=== PATIENT | male | born 1980 | race Caucasian/White ===

== ENCOUNTER 2016-11-24 16:23 | Emergency (ER) | payer MEDICAID, OTHER ==
[2016-11-24 16:58] VITALS: BMI 33.6
--- NOTE | 2016-11-24 17:03 | ED PDOC ---
Arrival/HPI - General Historian: Patient - History of Present Illness Time/Duration: 1 week Context: Street <Melissa Kiran - Last Filed: 11/24/16 22:48> <Scott Kaur - Last Filed: 11/25/16 12:20> - General Time Seen by Provider: 11/24/16 16:29 - History of Present Illness Narrative History of Present Illness (Text): 11/24/16 17:01 This 36 yo male with pmh drug abuse, depression, is brought to this ED by Police for PES evaluation. Patient stated he has been having family problems. Girlfriend " threw " him out of the house. Patient has not taken his home medication for at least a week. Patient admits using Cocaine last night. Patient stated he wanted to get arrested so the police could kill him. Patient denies hallucination, paranoia, sob, edwards, dizziness, or abnormal gait. Dr Ceballos Psychiatrist (Melissa Kiran) Past Medical History - Provider Review Nursing Documentation Reviewed: Yes - Infectious Disease Hx of Infectious Diseases: None - Cardiac Hx Hypertension: Yes - Pulmonary Hx Asthma: Yes - Psychiatric Hx Substance Use: Yes - Past Surgical History Past Surgical History: No Previous - Anesthesia Hx Anesthesia: No Hx Anesthesia Reactions: No Hx Malignant Hyperthermia: No - Suicidal Assessment Feels Threatened In Home Enviroment: No <Melissa Kiran P - Last Filed: 11/24/16 22:48> Family/Social History - Physician Review Nursing Documentation Reviewed: Yes Family/Social History: No Known Family HX Smoking Status: Light Smoker < 10 Cigarettes Daily Hx Alcohol Use: Yes Hx Substance Use: Yes Substance used: COCAINE, TODAY <Melissa Kiran P - Last Filed: 11/24/16 22:48> Allergies/Home Meds <Melissa Kiran P - Last Filed: 11/24/16 22:48> <Scott Kaur - Last Filed: 11/25/16 12:20> Allergies/Adverse Reactions: Allergies iodine Allergy (Verified 10/17/15 11:19) ANAPHYLAXIS shellfish derived Allergy (Verified 10/17/15 11:19) ANAPHYLAXIS Home Medications: Home Meds Medication Instructions Recorded Confirmed Alprazolam [Xanax] 3 mg PO PRN PRN 03/30/13 10/17/15 Escitalopram Oxalate [Lexapro] 10 mg PO BID 03/30/13 10/17/15 Divalproex [Depakote Sprinkles] 125 mg PO TID 10/17/15 10/17/15 Review of Systems - Review of Systems Constitutional: Normal. absent: Fatigue, Weight Change, Fevers Eyes: Normal ENT: Normal Respiratory: Normal. absent: SOB, Cough Cardiovascular: Normal. absent: Chest Pain, Palpitations Gastrointestinal: Normal. absent: Abdominal Pain, Nausea, Vomiting Genitourinary Male: Normal Musculoskeletal: Normal Skin: Normal Neurological: Normal. absent: Headache, Dizziness Endocrine: Normal Hemo/Lymphatic: Normal Psychiatric: Normal <Kiran,Nahim P - Last Filed: 11/24/16 22:48> Physical Exam Temperature: Afebrile Blood Pressure: Normal Pulse: Regular Respiratory Rate: Normal Appearance: Positive for: Well-Appearing, Non-Toxic, Comfortable Pain Distress: None Mental Status: Positive for: Alert and Oriented X 3 - Systems Exam Head: Present: Atraumatic, Normocephalic Pupils: Present: PERRL Extroacular Muscles: Present: EOMI Conjunctiva: Present: Normal Mouth: Present: Moist Mucous Membranes Neck: Present: Normal Range of Motion Respiratory/Chest: Present: Clear to Auscultation, Good Air Exchange. No: Respiratory Distress, Accessory Muscle Use, Wheezes, Decreased Breath Sounds, Rales, Retracting, Rhonchi, Tachypneic Cardiovascular: Present: Regular Rate and Rhythm, Normal S1, S2. No: Murmurs Abdomen: Present: Normal Bowel Sounds. No: Tenderness, Distention, Peritoneal Signs, Rebound, Guarding Back: Present: Normal Inspection. No: CVA Tenderness Upper Extremity: Present: Normal Inspection, Normal ROM, NORMAL PULSES, Neurovascularly Intact, Capillary Refill < 2s. No: Cyanosis, Edema Lower Extremity: Present: Normal Inspection, Normal ROM, Neurovascularly Intact , Capillary Refill < 2 s. No: Edema Neurological: Present: GCS=15, CN II-XII Intact, Speech Normal, Motor Func Grossly Intact, Normal Sensory Function, Normal Cerebellar Funct, Gait Normal Skin: Present: Warm, Dry, Normal Color. No: Rashes Psychiatric: Present: Alert, Oriented x 3 <Kiran,Nahim P - Last Filed: 11/24/16 22:48> Vital Signs Temp Pulse Resp BP Pulse Ox 11/25/16 12:09 98 F 80 19 130/85 100 11/25/16 10:00 97.5 F L 79 20 130/70 100 11/25/16 08:33 102 H 16 142/71 95 11/25/16 05:00 75 16 96 11/25/16 04:45 97.6 F 66 17 115/84 98 11/24/16 21:00 91 H 16 125/81 95 11/24/16 16:24 98.3 F 115 H 16 135/106 H 99 Medical Decision Making Re-evaluation Time: 22:49 Reassessment Condition: Re-examined, Improving,but remains with symptoms - Lab Interpretations I have reviewed the lab results: Yes Interpretation: No clinic. lab abnormalty - EKG Interpretation Interpreted by ED Physician: Yes (Sinus tachycardia @ 106bpm. No ST changes) Type: 12 lead EKG Comparison: No previous EKG avail. <Melissa Kiran - Last Filed: 11/24/16 22:48> <Scott Kaur - Last Filed: 11/25/16 12:20> ED Course and Treatment: 11/24/16 22:48 I spoke with PES screener, who recommended to have PES from [facility] revaluation. ( Melissa Kiran) 11/25/16 07:06 Patient has been turned over to me by . He has been screened and is awaiting placement. No problems reported overnight. Patient is sleeping soundly. (Scott Kaur) - Lab Interpretations Lab Results: 11/24/16 17:23 11/24/16 17:23 Lab Results 11/24/16 17:30: Urine Color Yellow, Urine Appearance Clear, Urine pH 6.0, Ur Specific [place] >= 1.030, Urine Protein Trace H, Urine Glucose (UA) Negative, Urine Ketones Negative, Urine Blood Negative, Urine Nitrate Negative, Urine Bilirubin Negative, Urine Urobilinogen 1.0 H, Ur Leukocyte Esterase Negative, Urine RBC Negative, Urine WBC 0 - 2, Ur Epithelial Cells 0 - 2, Urine Bacteria Trace, Urine Opiates Screen Negative, Urine Methadone Screen Negative, Ur Barbiturates Screen Negative, Ur Phencyclidine Scrn Negative, Ur Amphetamines Screen Negative, U Benzodiazepines Scrn Positive H, U Oth Cocaine Metabols Positive H, U Cannabinoids Screen Negative 11/24/16 17:23: WBC 10.4, RBC 4.30, Hgb 13.2 L, Hct 38.2 L, MCV 88.8, MCH 30.7, MCHC 34.6, RDW 15.0 H, Plt Count 317, MPV 10.9, Gran % 78.9 H, Lymph % (Auto) 10.2 L, [place] % (Auto) 8.2 H, Eos % (Auto) 2.5, Baso % (Auto) 0.2, Gran # 8.18 H , Lymph # 1.1 L, [place] # 0.9 H, Eos # 0.3, Baso # 0.02, Sodium 140, Potassium 4.2 , Chloride 106, Carbon Dioxide 24, Anion Gap 14, BUN 16, Creatinine 0.9, Est GFR ( Amer) > 60, Est GFR (Non-Af Amer) > 60, Random Glucose 105, Calcium 9.4, Total Bilirubin 0.4, AST 33, ALT 37, Alkaline Phosphatase 69, Total Protein 7.8, Albumin 4.1, Globulin 3.6, Albumin/Globulin Ratio 1.1, Salicylates < 1 L, Acetaminophen < 10.0 L, Alcohol, Quantitative < 10 - RAD Interpretation Narrative RAD Interpretations (Text): 11/24/16 19:36 CXR: NAD (Melissa Kiran) Radiology Orders: 11/24/16 17:02 CHEST PORTABLE [RAD] Stat Disposition/Present on Arrival - Present on Arrival History of DVT/PE: No History of Uncontrolled Diabetes: No Urinary Catheter: No History Surgical Site Infection Following: None <Melissa Kiran - Last Filed: 11/24/16 22:48> - Present on Arrival Any Indicators Present on Arrival: No History of DVT/PE: No History of Uncontrolled Diabetes: No Urinary Catheter: No History of Decub. Ulcer: No - Disposition Have Diagnosis and Disposition been Completed?: Yes Disposition Time: 12:20 Patient Plan: Other <Scott Kaur - Last Filed: 11/25/16 12:20> - Disposition Diagnosis: Depression Disposition: Transfer [facility] Condition: GOOD Referrals: Tereso Benson MD [Primary Care Provider] - Follow up with primary
[2016-11-24 17:33] LABS: ADD MANUAL DIFF? NO
[2016-11-24 17:50] LABS: ALB/GLOB RATIO 1.1 (1.1-1.8); ALKALINE PHOSPHATASE 69 U/L (38-133); ALT/SGPT 37 U/L (7-56); AST/SGOT 33 U/L (15-59); BILIRUBIN,TOTAL 0.4 mg/dL (0.2-1.3); BLOOD UREA NITROGEN 16 mg/dL (7-21); CALCIUM 9.4 mg/dL (8.4-10.5); CARBON DIOXIDE 24 mmol/L (21-33); CHLORIDE 106 mmol/L (95-110); GFR AFRICAN-AMERICAN > 60; GLUCOSE,RANDOM 105 mg/dL (70-110); POTASSIUM 4.2 mmol/L (3.6-5.0); SODIUM 140 mmol/L (132-148); TOTAL PROTEIN 7.8 g/dL (5.8-8.3)
[2016-11-24 17:57] LABS: URINE BILIRUBIN NEGATIVE (NEGATIVE); URINE BLOOD NEGATIVE (NEGATIVE); URINE GLUCOSE (UA) NEGATIVE (NEGATIVE); URINE KETONE NEGATIVE (NEGATIVE); URINE LEUKOCYTE ESTERASE NEGATIVE Leu/uL (NEGATIVE); URINE PROTEIN TRACE mg/dL (<30 mg/dL)
[2016-11-24 17:59] LABS: BASO # 0.02 K/mm3 (0.0-2.0); BASO % 0.2 % (0.0-3.0); EOS # 0.3 (0.0-0.7); EOS % 2.5 % (1.5-5.0); GRAN # 8.18 (1.4-6.5); GRAN % 78.9 % (50.0-68.0); HEMATOCRIT 38.2 % (42.0-52.0); LYMPH # 1.1 (1.2-3.4); LYMPH % 10.2 % (22.0-35.0); MEAN CELL VOLUME 88.8 fL (80.0-105.0); MEAN CORPUSCULAR HEMOGLOBIN 30.7 pg (25.0-35.0); MEAN CORPUSCULAR HGB CONC 34.6 g/dl (31.0-37.0); MEAN PLATELET VOLUME 10.9 fl (7.0-11.0); MONO # 0.9 (0.1-0.6); MONO % 8.2 % (1.0-6.0); PLATELET COUNT 317 10^3/uL (120.0-450.0); WHITE BLOOD COUNT 10.4 10^3/ul (4.5-11.0)
[2016-11-24 18:02] LABS: URINE APPEARANCE CLEAR (CLEAR); URINE COLOR YELLOW (YELLOW)
[2016-11-24 18:11] LABS: URINE EPITHELIAL CELLS 0 - 2 /hpf (0-5); URINE RBC NEGATIVE /hpf (0-2); URINE WBC 0 - 2 /hpf (0-6)
[2016-11-24 18:12] LABS: URINE BACTERIA TRACE (NEG)
--- NOTE | 2016-11-25 08:16 | RAD ---
HISTORY: PES eval COMPARISON: 10/17/2015 FINDINGS: LUNGS: No active pulmonary disease. PLEURA: No significant pleural effusion identified, no pneumothorax apparent. CARDIOVASCULAR: Normal. OSSEOUS STRUCTURES: No significant abnormalities. VISUALIZED UPPER ABDOMEN: Normal. OTHER FINDINGS: None. IMPRESSION: No active disease.
[2016-11-25 12:25] VITALS: TEMP 98
[2016-11-25 14:12] VITALS: BP 125/71; PULSE 88; RESP 19; O2SAT 100
--- NOTE | 2016-11-25 15:01 | CARD ---
APPROVED REPORT EKG Measurement Heart [id number] <Conclusion> Sinus tachycardia Minimal voltage criteria for LVH, may be normal variant Borderline ECG
--- NOTE | 2016-11-26 12:19 | CARD ---
APPROVED REPORT EKG Measurement Heart [id number] <Conclusion> Normal sinus rhythm Minimal voltage criteria for LVH, may be normal variant Borderline ECG
== END 2016-11-25 14:39 | disposition short-term general hospital (02) ==
LOC: ED 16:23
DX: F32.9 Major depressive disorder, single episode, unspecified (principal); I10 Essential (primary) hypertension; Z72.0 Tobacco use

== ENCOUNTER 2017-07-02 01:44 | Emergency (ER) | payer OTHER ==
[2017-07-02 01:44] VITALS: BMI 33.6
[2017-07-02 01:57] VITALS: TEMP 98
[2017-07-02] MEDS ORDERED: TDAP Vaccine 0.5 mL Syr IM ONE (01:58)
--- NOTE | 2017-07-02 02:06 | ED PDOC ---
Arrival/HPI - General Historian: Patient EM Caveat: Acuity of Condition - History of Present Illness Time/Duration: Prior to Arrival, Other (14 hours) Symptom Onset: Sudden Symptom Course: Improving Quality: Aching Severity Level: 2 Activities at Onset: Light Context: Standing <Kanchan Mccabe - Last Filed: 07/02/17 03:39> <MargaritaMoshedarlene - Last Filed: 07/02/17 04:20> - General Chief Complaint: Abnormal Skin Integrity Time Seen by Provider: 07/02/17 01:57 - History of Present Illness Narrative History of Present Illness (Text): 07/02/17 02:22 37 years old male with PMH depression, presents for right hand laceration x 14hrs [employer]ISTICAL [employer]DEL[employer]. Pt states that it occurred while he was trying to open a can of beer with a knife. He denies excessive bleeding, swelling, pain, discharge, fever, chills, erythema. He came to ED to get his tetanus shot. (Kanchan Mccabe) Associated Symptoms (Text): 07/02/17 02:26 Denies excessive bleeding, swelling, pain, discharge, fever, chills, erythema ( Kanchan Mccabe) Past Medical History - Provider Review Nursing Documentation Reviewed: Yes - Infectious Disease Hx of Infectious Diseases: None - Cardiac Hx Cardiac Disorders: No Hx Hypertension: Yes - Pulmonary Hx Asthma: Yes - Neurological Hx Neurological Disorder: No HX Cerebrovascular Accident: No Hx Seizures: No - HEENT Hx HEENT Disorder: No - Renal Hx Renal Disorder: No - Endocrine/Metabolic Hx Endocrine Disorders: No - Hematological/Oncological Hx Blood Disorders: No Hx Cancer: No - Integumentary Hx Dermatological Disorder: No - Musculoskeletal/Rheumatological Hx Musculoskeletal Disorders: No - Gastrointestinal Hx Gastrointestinal Disorders: No - Genitourinary/Gynecological Hx Genitourinary Disorders: No Hx Sexually Transmitted Diseases: No - Psychiatric Hx Anxiety: Yes Hx Depression: Yes Hx Substance Use: No - Past Surgical History Past Surgical History: No Previous - Anesthesia Hx Anesthesia: No Hx Anesthesia Reactions: No Hx Malignant Hyperthermia: No - Suicidal Assessment Feels Threatened In Home Enviroment: No <Kanchan Mccabe - Last Filed: 07/02/17 03:39> Family/Social History - Physician Review Nursing Documentation Reviewed: Yes Family/Social History: No Known Family HX Smoking Status: Light Smoker < 10 Cigarettes Daily Hx Alcohol Use: Yes Frequency of alcohol use: Socially Hx Substance Use: No Substance used: COCAINE, TODAY <Kanchan Mccabe - Last Filed: 07/02/17 03:39> Allergies/Home Meds <EstelleKanchan rodriguez - Last Filed: 07/02/17 03:39> <Matilde Avila - Last Filed: 07/02/17 04:20> Allergies/Adverse Reactions: Allergies iodine Allergy (Verified 07/02/17 01:57) ANAPHYLAXIS shellfish derived Allergy (Verified 07/02/17 01:57) ANAPHYLAXIS Home Medications: Home Meds Medication Instructions Recorded Confirmed Alprazolam [Xanax] 3 mg PO PRN PRN 03/30/13 11/25/16 Escitalopram Oxalate [Lexapro] 10 mg PO BID 03/30/13 11/25/16 Divalproex [Depakote Sprinkles] 125 mg PO TID 10/17/15 11/25/16 Review of Systems - Physician Review All systems were reviewed & negative as marked: Yes - Review of Systems Constitutional: absent: Fatigue, Fevers Eyes: absent: Vision Changes Respiratory: absent: SOB, Cough Cardiovascular: absent: Chest Pain Gastrointestinal: absent: Abdominal Pain, Diarrhea Skin: Laceration Neurological: absent: Headache <EstelleKanchan rodriguez - Last Filed: 07/02/17 03:39> Physical Exam Vital Signs Reviewed: Yes Temperature: Afebrile Blood Pressure: Normal Pulse: Tachycardic Respiratory Rate: Normal Appearance: Positive for: Comfortable, Other (intoxicated) Pain Distress: None Mental Status: Positive for: Alert and Oriented X 3 - Systems Exam Head: Present: Atraumatic, Normocephalic Pupils: Present: PERRL Extroacular Muscles: Present: EOMI Conjunctiva: Present: Normal Mouth: Present: Moist Mucous Membranes Respiratory/Chest: Present: Clear to Auscultation Cardiovascular: Present: Normal S1, S2 Upper Extremity: Present: NORMAL PULSES, Neurovascularly Intact, Other (1.5 cm laceration on palmar aspect of right hand, strength and sensation intact, + pulses. No swellling, discharge, erythema.) Neurological: Present: GCS=15, Speech Normal Skin: Present: Warm, Dry Psychiatric: Present: Alert, Oriented x 3, Intoxicated <EstelleKanchan - Last Filed: 07/02/17 03:39> Vital Signs Temp Pulse Resp BP Pulse Ox 07/02/17 03:29 95 H 16 136/93 H 98 07/02/17 01:54 98.0 F 109 H 20 149/66 97 Medical Decision Making <Kanchan Mccabe - Last Filed: 07/02/17 03:39> <Matilde Avila - Last Filed: 07/02/17 04:20> ED Course and Treatment: 07/02/17 02:00 37 years old male presents s/p right hand laceration, neurovascularly intact: - Tdap - Wound irrigation with NS, betadine - Reassess PROCEDURE: LACERATION REPAIR Performed by the emergency provider Location: right hand palmar aspect Length: 1.2 cm Description: clean wound edges, no foreign bodies Distal CMS: Normal. No deficits. Neurovascularly intact. Anesthesia: 1% Lidocaine injection Preparation: The wound was cleaned with NS and Betadyne. The area was prepped and draped in the usual sterile fashion. Exploration: The wound was explored and no foreign bodies were found. Procedure: The wound was closed with 5-0 prolene nonabsorbable sutures. In total , 2 sutures were used, and steri strips were used for appropriate approximation. Post-Procedure: Good closure and hemostasis. The patient tolerated the procedure well and there were no complications. CSM remains intact. Post procedure dressing and splint applied. 07/02/17 02:26 Discharge on Keflex and return to ER if develops fever, discharge, swelling or any other complaints. Return to ED or PCP in 1 week for suture removal. (Kanchan Mccabe) In agreement with resident note, which includes further HPI details. Patient was seen and evaluated with resident, came up with plan and treatment together. 07/02/17 04:18 Patient nv intact with no evidence of tendon injury. Two sutures placed to help approximation but otherwise steristrips used, given laceration is >14 hours old will update tetanus and d/c on abx. (Matilde Avila) - Medication Orders Current Medication Orders: Discontinued Medications Bacitracin (Bacitracin) 1 ea TOP STAT STA Stop: 07/02/17 02:14 Last Admin: 07/02/17 02:25 Dose: 1 ea Lidocaine HCl (Lidocaine 1% (20ml)) 1 ml IJ STAT STA Stop: 07/02/17 02:14 Tetanus/Reduced Diphtheria/Acell Pertussis (Boostrix Vaccine Inj) 0.5 ml IM .ONCE ONE Stop: 07/02/17 01:59 Last Admin: 07/02/17 02:25 Dose: 0.5 ml - PA / TREASURY REPRESENTATIVE / Resident Statement COLE has reviewed & agrees with the documentation as recorded. / has examined the patient and agrees with the treatment plan. <Kanchan Mccabe - Last Filed: 07/02/17 03:39> - PA / TREASURY REPRESENTATIVE / Resident Statement COLE has reviewed & agrees with the documentation as recorded. / has examined the patient and agrees with the treatment plan. <Matilde Avila - Last Filed: 07/02/17 04:20> Disposition/Present on Arrival - Present on Arrival Any Indicators Present on Arrival: No History of DVT/PE: No History of Uncontrolled Diabetes: No Urinary Catheter: No History of Decub. Ulcer: No History Surgical Site Infection Following: None - Disposition Have Diagnosis and Disposition been Completed?: Yes Disposition Time: 03:25 Patient Plan: Discharge <Kanchan Mccabe - Last Filed: 07/02/17 03:39> <Matilde Avila - Last Filed: 07/02/17 04:20> - Disposition Diagnosis: Laceration of right hand Disposition: HOME/ ROUTINE Condition: GOOD Discharge Instructions (ExitCare): Care For Your Stitches (ED), Laceration (ED) Additional Instructions: Keep wound clean. Bacitracin and dressing daily. Suture removal in 7 days. Follow up with your primary care doctor. Return to the emergency department if any new concerning symptoms. Prescriptions: Cephalexin [Keflex] 1 cap PO TID #30 cap Forms: [employer] (Moroccan)
[2017-07-02] MEDS ORDERED: Bacitracin 500 Units/gm Oint Foilpak UD TOP STA (02:13)
[2017-07-02] MEDS ORDERED: Lidocaine 1% Inj (20ml) IJ STA (02:13)
[2017-07-02 03:30] VITALS: BP 136/93; PULSE 95; RESP 16; O2SAT 98
== END 2017-07-02 03:39 | disposition home or self-care (01) ==
LOC: ED 01:44
DX: S61.411A Laceration without foreign body of right hand, initial encounter (principal); W26.0XXA Contact with knife, initial encounter; I10 Essential (primary) hypertension; F17.210 Nicotine dependence, cigarettes, uncomplicated; Z23 Encounter for immunization

== ENCOUNTER 2017-07-14 07:23 | Emergency (ER) | payer OTHER ==
[2017-07-14 07:48] VITALS: RESP 18
--- NOTE | 2017-07-14 08:08 | ED PDOC ---
Arrival/HPI - General Chief Complaint: Lower Extremity Problem/Injury Time Seen by Provider: 07/14/17 07:28 Historian: Patient - History of Present Illness Narrative History of Present Illness (Text): 07/14/17 07:52 37 year old male, whose past medical history includes drug abuse and depression , presents to the emergency department complaining of posterior left leg pain that began an hour prior to arrival. Patient reports he was going up the stairs in a fast pace when he developed sudden pain behind his left knee and his calf. Denies fall or direct injury. Denies numbness or weakness. Denies hip pain. Denies ankle pain. Denies chest pain or shortness of breath. PMD: Dr. Konrad Benson Time/Duration: 1 hour Symptom Onset: Sudden Symptom Course: Unchanged Activities at Onset: Light Past Medical History - Provider Review Nursing Documentation Reviewed: Yes - Infectious Disease Hx of Infectious Diseases: None - Cardiac Hx Cardiac Disorders: No Hx Hypertension: Yes - Pulmonary Hx Asthma: Yes - Neurological Hx Neurological Disorder: No - HEENT Hx HEENT Disorder: No - Renal Hx Renal Disorder: No - Endocrine/Metabolic Hx Endocrine Disorders: No - Hematological/Oncological Hx Blood Disorders: No - Integumentary Hx Dermatological Disorder: No - Musculoskeletal/Rheumatological Hx Musculoskeletal Disorders: No - Gastrointestinal Hx Gastrointestinal Disorders: No - Genitourinary/Gynecological Hx Genitourinary Disorders: No Hx Sexually Transmitted Diseases: No - Psychiatric Hx Anxiety: Yes Hx Depression: Yes Hx Substance Use: No - Past Surgical History Past Surgical History: No Previous - Anesthesia Hx Anesthesia: No Hx Anesthesia Reactions: No Hx Malignant Hyperthermia: No - Suicidal Assessment Feels Threatened In Home Enviroment: No Family/Social History - Physician Review Nursing Documentation Reviewed: Yes Family/Social History: No Known Family HX Smoking Status: Light Smoker < 10 Cigarettes Daily Hx Alcohol Use: Yes Hx Substance Use: No Substance used: COCAINE, TODAY Allergies/Home Meds Allergies/Adverse Reactions: Allergies iodine Allergy (Verified 07/02/17 01:57) ANAPHYLAXIS shellfish derived Allergy (Verified 07/02/17 01:57) ANAPHYLAXIS Home Medications: Home Meds Medication Instructions Recorded Confirmed Alprazolam [Xanax] 3 mg PO PRN PRN 03/30/13 11/25/16 Escitalopram Oxalate [Lexapro] 10 mg PO BID 03/30/13 11/25/16 Divalproex [Depakote Sprinkles] 125 mg PO TID 10/17/15 11/25/16 Review of Systems - Review of Systems Constitutional: absent: Fevers Respiratory: absent: SOB Cardiovascular: Calf Pain. absent: Chest Pain, Palpitations, Edema, [place], Orthopnea, Syncope Gastrointestinal: absent: Abdominal Pain Musculoskeletal: absent: Back Pain, Neck Pain Skin: absent: Rash, Laceration Neurological: absent: Headache, Dizziness, Focal Weakness Endocrine: absent: Polyuria Hemo/Lymphatic: absent: Easy Bleeding Psychiatric: absent: Depression, Suicidal Ideation (/Homicidal Ideation) Physical Exam - Physical Exam Narrative Physical Exam (Text): Head: Atraumatic. Normocephalic. Eyes: PERRL. EOMI. ENT: Mucous membranes are moist and intact. Oropharynx is clear and symmetric. Neck: Supple. Full ROM. No JVD. No lymphadenopathy. Cardiovascular: Tachycardic on initial evaluation. On re-evaluation regular rate and rhythm. No pathologic murmurs. Pulmonary/Chest: No evidence of respiratory distress. Clear to auscultation bilaterally. No wheezing, rales or rhonchi. Abdominal: Soft and non-distended. There is no tenderness. No rebound, guarding, or rigidity. No organomegaly. Good bowel sounds. Back: No CVA tenderness. No midline tenderness. Extremities: Pain to the posterior leg behind knee with no mass or soft tissue swelling noted, pain to left calf. No achilles pain. No edema. No cyanosis. No clubbing. Full range of motion in all extremities. Normal distal pulses. No erythema or streaking. No knee swelling noted. No hip pain. Negative for drawer' s sign. No ligamentous laxity. Skin: Skin is warm and dry. No petechiae. No purpura. No streaking. Neurological: Alert, awake, and oriented. Motor and sensory exam intact. No saddle anesthesia. Psychiatric: Good eye contact. Normal interaction, affect, and behavior. Vital Signs Reviewed: Yes Vital Signs Temp Pulse Resp BP Pulse Ox 07/14/17 09:58 98.1 F 100 H 18 125/83 95 07/14/17 07:24 97.6 F 111 H 18 138/92 H 97 Temperature: Afebrile Blood Pressure: Hypertensive Pulse: Tachycardic Respiratory Rate: Normal Appearance: Positive for: Well-Appearing, Non-Toxic, Comfortable Pain Distress: None Mental Status: Positive for: Alert and Oriented X 3 Medical Decision Making ED Course and Treatment: 07/14/17 07:52 Impression: 37 year old male presents complaining of pain to the posterior left leg including calf and knee after walking up steps. Differential Diagnosis included but are not limited to: Muscle Strain VS DVT Plan: -- Duplex lower extremity vein left US -- Reassess and disposition Progress Notes: Patient reports acute onset of pain to left leg. On exam no achilles pain, no foot pain. Strong distal pulses. No warmth or erythema. No hip pain. 07/14/17 09:21 Preliminary result on the US negative for DVT on the left leg. Patient on re-evaluation resting comfortable. BP and heart rate improved. Past records reviewed. He is currently not intoxicated. Denies depression or suicidal ideation currently. Will discharge with crutches, advised to stay off leg, advised follow-up with orthopedic physician. On exam, NV intact with strong pulse and no fever or cellulitis or streaking noted. 07/14/17 17:46 - RAD Interpretation Radiology Orders: 07/14/17 07:52 DUPLEX LOWER EXTRM VEIN LEFT [US] Stat - Scribe Statement The provider has reviewed the documentation as recorded by the Scribe Jose Farooq Provider Scribe Attestation: All medical record entries made by the Scribe were at my direction and personally dictated by me. I have reviewed the chart and agree that the record accurately reflects my personal performance of the history, physical exam, medical decision making, and the department course for this patient. I have also personally directed, reviewed, and agree with the discharge instructions and disposition. Disposition/Present on Arrival - Present on Arrival Any Indicators Present on Arrival: No History of DVT/PE: No History of Uncontrolled Diabetes: No Urinary Catheter: No History of Decub. Ulcer: No History Surgical Site Infection Following: None - Disposition Have Diagnosis and Disposition been Completed?: Yes Diagnosis: Leg pain Disposition: HOME/ ROUTINE Disposition Time: 10:40 Patient Plan: Discharge Condition: GOOD Discharge Instructions (ExitCare): Muscle Strain (ED), Leg Pain (ED) Additional Instructions: Rest. Use crutches to assist with ambulation. For any redness, swelling, discoloration, fevers, persistent pain or worsening of any symptoms, get rechecked. Use prescribed medication only as directed. Follow-up with orthopedic physician in 1-2 days for re-evaluation. Prescriptions: Naproxen 250 mg PO BID PRN #10 tablet PRN Reason: Pain, Mild (1-3) Referrals: [facility] [Outside] - Follow up with primary [facility] [Outside] - Follow up with primary Tereso Benson MD [Primary Care Provider] - Follow up with primary Forms: [employer] (Bulgarian), WORK NOTE
[2017-07-14 09:59] VITALS: BP 125/83; PULSE 100; TEMP 98.1; O2SAT 95
--- NOTE | 2017-07-15 13:51 | US ---
PROCEDURE: Left lower extremity venous US HISTORY: Leg pain and swelling. Evaluate for DVT. PHYSICIAN(S): Fortunato Sosa MD. TECHNIQUE: Duplex sonography and color-flow Doppler with graded compression were used to evaluate the deep venous system of the left lower extremity. FINDINGS: The visualized deep venous system of the left lower extremity is sonographically normal and compressible. Normal wave forms and augmentation are seen. There is no sonographic evidence for deep venous thrombosis in the visualized segments of the left lower extremity. IMPRESSION: 1. No sonographic evidence for deep venous thrombosis in the visualized segments of the left lower extremity.
== END 2017-07-14 10:15 | disposition home or self-care (01) ==
LOC: ED 07:23
DX: M79.605 Pain in left leg (principal); F17.210 Nicotine dependence, cigarettes, uncomplicated; I10 Essential (primary) hypertension